=== PATIENT | male | born 1985 | race African-American/Black ===

== ENCOUNTER 2016-08-11 21:28 | Emergency (ER) | payer MEDICAID ==
[~2016-08-11] VITALS: Ht 175.3 cm; Wt 86.2 kg
[2016-08-11] MEDS ORDERED: ALBUTEROL SULF 2.5 MG/0.5ML(0.5%) NEB SOLN NEB ONE ×2 (21:45→22:30)
[2016-08-11] MEDS ORDERED: IPRATROPIUM BROM 0.5 MG/2.5ML INH SOL NEB ONE ×2 (21:45→22:30)
[2016-08-11 22:06] LABS: Basophils # (auto) 0 uL; Basophils % (auto) 0.2 % (0.0-2.0); Eosinophils # (auto) 0.2 uL; Eosinophils % (auto) 2.1 % (0.0-7.0); Hemoglobin 14.9 g/dL (13.5-17.5); Lymphocytes # (auto) 1.2 uL; Lymphocytes % (auto) 12.7 % (10.0-50.0); Mean Corpuscular Hemoglobin 29.1 pg (28.0-32.0); Mean Corpuscular Hgb Conc. 33.2 g/dL (32.0-36.0); Mean Corpuscular Volume 87.7 fL (80.0-100.0); Mean Platelet Volume 7.4 fL (7.4-10.4); Monocytes # (auto) 0.7 uL; Monocytes % (auto) 7.3 % (0.0-12.0); Neutrophils # (auto) 7.2 uL; Neutrophils % (auto) 77.7 % (37.0-80.0); Platelet Count (auto) 343 10^3/uL (140-450); Red Cell Distribution Width 13.5 % (11.6-16.0); White Blood Cell 9.3 10^3/uL (4.4-10.8)
[2016-08-11 22:25] LABS: Albumin 4.4 g/dL (3.4-5.0); BUN/Creatinine Ratio 9.4; Potassium 3.5 mmol/L (3.5-5.1)
[2016-08-11 22:28] LABS: Bilirubin, Total 0.5 mg/dL (0.2-1.0); Total Protein 7.4 g/dL (6.4-8.2)
[2016-08-11] MEDS ORDERED: methylPREDNISolone SOD SUCC 125 MG/2 ML VL IV ONE (22:30)
[2016-08-12 00:56] VITALS: BP 148/75
[2016-08-12 01:34] LABS: Urine RBC None Seen /hpf (0 - 3)
[2016-08-12 01:52] LABS: Urine Bilirubin Negative (Negative); Urine Blood Negative /uL (Negative); Urine Color Yellow (Yellow); Urine Glucose Normal (Normal); Urine Ketone Negative (Negative); Urine Nitrite Negative (Negative); Urine Urobilinogen Normal (Negative)
== END 2016-08-12 02:14 | disposition home or self-care (01) ==
LOC: ER 21:30
DX: J45.901 Unspecified asthma with (acute) exacerbation (principal); F12.10 Cannabis abuse, uncomplicated
CPT/HCPCS: 36415; 71010; 80053; 81001; 85025; 94640; 94761; 96374; 99285; J2930